=== PATIENT | male | born 1995 | race Caucasian/White ===

== ENCOUNTER 2018-06-05 10:36 | Emergency (ER) | payer BC ==
[2018-06-05 11:23] VITALS: BP 149/83
--- NOTE | 2018-06-05 12:28 | UC ---
Eye Complaint HPI - HPI Summary HPI Summary: PT AWOKE THIS AM WITH R EYE REDNESS AND CRUSTING. NOW IN L EYE WELL. + HEAD COLD FOR A COUPLE OF DAYS. NO CONTACT USE OF EYE PAIN. - History of Current Complaint Chief Complaint: UCEye Stated Complaint: RIGHT EYE CONCERN Time Seen by Provider: 06/05/18 12:22 Hx Obtained From: Patient Onset/Duration: Gradual Onset Timing: Constant Pain Intensity: 0 Aggravating Factor(s): Nothing Alleviating Factor(s): Nothing Associated Signs And Symptoms: Negative: Photophobia, Vision Impairment Bilateral - Risk Factors Acute Glaucoma Risk Factors: Negative - Allergies/Home Medications Allergies/Adverse Reactions: Allergies Allergy/AdvReac Type Severity Reaction Status Date / Time No Known Allergies Allergy Verified 06/05/18 11:19 PMH/Surg Hx/FS Hx/Imm Hx Previously Healthy: Yes - Surgical History Surgical History: None - Family History Known Family History: Positive: Non-Contributory - Social History Occupation: Student Alcohol Use: Weekly Substance Use Type: None Smoking Status (MU): Never Smoked Tobacco - Immunization History Vaccination Up to Date: Yes Review of Systems All Other Systems Reviewed And Are Negative: Yes Constitutional: Negative: Fever Eyes: Positive: Drainage, Eye Redness. Negative: Blurred Vision, Diplopia, Photophobia Neurological: Negative: Headache Physical Exam Triage Information Reviewed: Yes Appearance: Well-Appearing Vital Signs: Initial Vital Signs Temp 98.3 F 06/05/18 11:19 Pulse 69 06/05/18 11:19 Resp 15 06/05/18 11:19 BP 149/83 06/05/18 11:19 Pulse Ox 100 06/05/18 11:19 Vital Signs Reviewed: Yes Eyes: Positive: Other: - NO PERIORBIAL EDEMA OR RASH. NO AURICULAR ADENOPATHY. CONJUNCTIVE INJECTED X2 AND YELLOW DISCHARGE NOTED X2. PERRL, EOMI. AC'S CLEAR. ENT: Positive: Pharynx normal, Nasal congestion, Nasal drainage - CLEAR, TMs normal. Negative: Sinus tenderness Neck: Positive: Supple, Nontender Respiratory: Positive: Lungs clear Cardiovascular: Positive: RRR Abdomen Description: Positive: Nontender Bowel Sounds: Positive: Present Musculoskeletal: Positive: ROM Intact Neurological: Positive: Alert Psychological: Positive: Age Appropriate Behavior Skin Exam: Normal Skin: Negative: Rashes Eye Complaint Course/Dx - Differential Dx/Diagnosis Provider Diagnosis: URI (upper respiratory infection), Conjunctivitis Discharge - Sign-Out/Discharge Documenting (check all that apply): Patient Departure All imaging exams completed and their final reports reviewed: No Studies - Discharge Plan Condition: Stable Disposition: HOME Prescriptions: Polymyx/Trimethoprim OPTH* [Polytrim OPHTH*] 1 drop BOTH EYES Q3H 7 Days #1 btl Patient Education Materials: Upper Respiratory Infection (DC), Conjunctivitis ( ED) Forms: *School Release Referrals: RENALDO [facility] [[facility], APPLICATION, OTHER] - 4 Days Additional Instructions: HAVE THE CLINIC RECHECK YOUR BLOOD PRESSURE DURING THE FOLLOW UP VISIT. BP HERE 149/83 - Billing Disposition and Condition Condition: STABLE Disposition: Home - Attestation Statements Provider Attestation: I was available for consult. This patient was seen by the JULIETA. The patient was not presented to, seen by, or examined by me. -Zahida
== END 2018-06-05 12:37 | disposition home or self-care (01) ==
LOC: UCCORT 10:36
DX: H10.9 Unspecified conjunctivitis (principal); J06.9 Acute upper respiratory infection, unspecified
CPT/HCPCS: 99202; G0463

== ENCOUNTER 2019-05-05 13:40 | Emergency (ER) | payer BC ==
--- OUTSIDE RECORDS SUMMARY | 2019-05-05 14:00 | XMS REPORT | Summary of Care ---
:1995 Author Organization [facility] Address [address] [place] [address] Care Team Providers Name Role Phone Trinidad Bhatti MD Primary Care Provider Reason for Visit Reason Comments Follow-up Chest and Epigastric Pain after vomiting Encounter Details Date Type Department Care Team Description 03/07/2019 Office Visit [facility] Peyman Garcia MD Hematemesis with [address] [facility] nausea (Primary Dx) [address] [place] [id number] Allergies No Known Allergiesdocumented as of this encounter (statuses as of 03/13/2019) Medications Medication Sig Dispensed Refills Start Date End Date Status Pantoprazole Sodium Take 1 tablet by 30 tablet 1 02/20/2019 02/19/2020 Active 40 MG Oral Tablet mouth every Delayed Release morning before (PROTONIX) breakfast Additional information Patient not taking. Reported on 03/07/2019 8:46 AM documented as of this encounter (statuses as of 03/13/2019) Active Problems Problem Noted Date Hematemesis with nausea 03/07/2019 Esophageal rupture 02/18/2019 documented as of this encounter (statuses as of 03/13/2019) Social History Tobacco Use Types Packs/Day Years Used Date Never Smoker 0 Smokeless Tobacco: Never Used Alcohol Use Drinks/Week oz/Week Comments Yes 10 Cans of beer 10.0 Sex Assigned at Date Recorded Not on file Job Start Date Occupation Industry Not on file Not on file Not on file Travel History Travel Start Travel End No recent travel history available. documented as of this encounter Last Filed Vital Signs Vital Sign Reading Time Taken Comments Blood Pressure 124/83 03/07/2019 8:44 AM EST Pulse 78 03/07/2019 8:44 AM EST Temperature 36.6 03/07/2019 8:44 AM EST C (97.9 F) Respiratory Rate 16 03/07/2019 8:44 AM EST Oxygen Saturation 96% 03/07/2019 8:44 AM EST Inhaled Oxygen Concentration - - Weight 86.6 kg (191 lb) 03/07/2019 8:44 AM EST Height 185.4 cm (6' 1") 03/07/2019 8:44 AM EST Body Mass Index 25.2 03/07/2019 8:44 AM EST documented in this encounter Progress Notes Peyman Garcia MD - 03/07/2019 9:00 AM EST Thoracic Surgery Outpatient Progress Note Subjective Edu Clark is a 23 y.o. male with a recent hospitalization for possible esophageal rupture. He was transferred from [facility] following multiple episode of emesis and dry heaves, which progressed to hematemesis. His CT and esophagram were negative and he was able to be discharged home. He presents today for follow up. Overall, Mr. Clark reports being in good health. He has not had any issues related to abdominal pain, dysphagia, heartburn, nausea, or vomiting since hospital discharge. He does state that he had an episode of significant nausea and vomiting about 2-3 weeks before his hospitalization, which he attributed to motion sickness. History reviewed. No pertinent past medical history. Past Surgical History: Procedure Laterality Date WISDOM TOOTH EXTRACTION No Known Allergies Current Outpatient Medications: Pantoprazole Sodium 40 MG Oral Tablet Delayed Release (PROTONIX), Take 1 tablet by mouth every morning before breakfast (Patient not taking: Reported on 03/07/2019), Disp: 30 tablet, Rfl: 1 Family History Problem Relation Age of Onset No Known Problems Mother No Known Problems Father Asthma Sister Social History Socioeconomic History Marital status: Single Spouse name: Not on file Number of children: Not on file Years of education: Not on file Highest education level: Not on file Occupational History Occupation: student Social Needs Financial resource strain: Not on file Food insecurity: Worry: Not on file Inability: Not on file Transportation needs: Medical: Not on file Non-medical: Not on file Tobacco Use Smoking status: Never Smoker Smokeless tobacco: Never Used Substance and Sexual Activity Alcohol use: Yes Alcohol/week: 10.0 standard drinks Types: 10 Cans of beer per week Drug use: Never Sexual activity: Yes Partners: Female control/protection: Condom Lifestyle Physical activity: Days per week: Not on file Minutes per session: Not on file Stress: Not on file Relationships Social connections: Talks on phone: Not on file Gets together: Not on file Attends taoism service: Not on file Active member of club or organization: Not on file Attends meetings of clubs or organizations: Not on file Relationship status: Not on file Intimate partner violence: Fear of current or ex partner: Not on file Emotionally abused: Not on file Physically abused: Not on file Forced sexual activity: Not on file Other Topics Concern Not on file Social History Narrative Not on file ROS- negative except for HPI Objective Visit Vitals BP 124/83 (BP Location: Left arm, Patient Position: Sitting, Cuff size: Regular) Pulse 78 Temp 36.6 C (Oral) Resp 16 Ht 1.854 m Wt 86.6 kg (191 lb) SpO2 96% BMI 25.20 kg/m Gen: AAOx3 NAD HEENT: NCAT, PERRL, EOMI Neck: Supple, trachea midline Pulm: Clear and unlabored on room air Abd: Soft, NTND Extrem: WWP Assessment Edu Clark is a 23 y.o. male with recent hospitalization after multiple bout of emesis culminating in hematemesis. Plan - I had long and productive conversation with the patient regarding his clinical history and imaging.We discussed his overall health since discharge, and he reports doing very well. He has been limiting his diet to soft foods, and I explained that at this point, he can advance and eat whatever he would like without any restrictions or limitations. He is also free to resume normal activities withoutany limitations from that standpoint as well. While the episode that led to hospitalization was potentially related to alcohol consumption the night before, the patient reports having a similar episode where he had multiple bouts of vomiting without any dry heaving that happened 2 or 3 weeks before then. He states he thought this was related more due to his motion sickness, but was concerned if he should follow up with a clinical microbiologist. I explained to him that he should follow up with his primary care physician when he returns home on , and he will help make the determination of whether a gastroenterology evaluation would be appropriate. The patient asked a number of insightful questions which were answered to his satisfaction. I reiterated he has no limitations on his diet or activity at this point. We encouraged him to call with any questions or concerns that should arise. I would be happy to see him at any time should the need arise. I spent 10 minutes with the patient. More than 50% of the visit was spent on reviewing the above mentioned imaging with the patient and counseling the patient about the assessment and plan as outlined. documented in this encounter Plan of Treatment Health Maintenance Due Date Last Done Comments MMR Vaccines (1 of 1 - Standard 1998 series) Varicella Vaccines (1 of 2 - 1998 2-dose childhood series) DTaP,Tdap,and Td Vaccines (1 - 2004 Tdap) HPV Vaccines (1 - Male 2-dose 2008 series) HIV Screening 2010 Influenza Vaccine 12/26/2018 Pneumococcal Vaccine: 65+ Years (1 2062 of 2 - PCV13) HIB Vaccines Aged Out No longer eligible based on patient's age to complete this topic Hepatitis A Vaccines Aged Out No longer eligible based on patient's age to complete this topic Hepatitis B Vaccines Aged Out No longer eligible based on patient's age to complete this topic IPV Vaccines Aged Out No longer eligible based on patient's age to complete this topic Pneumococcal Vaccine: Pediatrics Aged Out No longer eligible based on (0 to 5 Years) and At-Risk patient's age to complete this Patients (6 to 64 Years) topic documented as of this encounter Results Not on filedocumented in this encounter Visit Diagnoses Diagnosis Hematemesis with nausea - Primary documented in this encounter
[2019-05-05 14:24] VITALS: BP 119/73
--- NOTE | 2019-05-05 14:56 | UC ---
General HPI - HPI Summary HPI Summary: 2 days ago started having a small but "ignorable" amount of left jaw pain which has progressively worsened. He awakened today with swelling in the left jaw area. - History of Current Complaint Chief Complaint: UCGeneralIllness Stated Complaint: LEFT JAW PAIN Time Seen by Provider: 05/05/19 14:55 Hx Obtained From: Patient Onset/Duration: Gradual Onset Timing: Constant Onset Severity: Mild Current Severity: Mild Pain Intensity: 2 - Allergy/Home Medications Allergies/Adverse Reactions: Allergies Allergy/AdvReac Type Severity Reaction Status Date / Time No Known Allergies Allergy Verified 05/05/19 14:24 PMH/Surg Hx/FS Hx/Imm Hx Previously Healthy: Yes - Surgical History Surgical History: None - Family History Known Family History: Positive: Non-Contributory - Social History Occupation: Student Lives: Dormitory/Roommates Alcohol Use: Weekly Substance Use Type: None Smoking Status (MU): Never Smoked Tobacco - Immunization History Vaccination Up to Date: Yes Review of Systems All Other Systems Reviewed And Are Negative: Yes ENT: Positive: Other - Left jaw pain and swelling Is Patient Immunocompromised?: No Physical Exam Triage Information Reviewed: Yes Appearance: Well-Appearing, No Pain Distress, Well-Nourished Vital Signs: Initial Vital Signs Temp 99.0 F 05/05/19 14:19 Pulse 82 05/05/19 14:19 Resp 16 05/05/19 14:19 BP 119/73 05/05/19 14:19 Pulse Ox 99 05/05/19 14:19 Vital Signs Reviewed: Yes Eyes: Positive: Conjunctiva Clear ENT: Positive: Hearing grossly normal, Pharynx normal, TMs normal, Uvula midline , Other - Tragus non tender. Swelling anteriorly to the left tragus with mild cellulitis below the swelling and tenderness on palpation.. Negative: Trismus, Muffled voice Dental Exam: Normal Dental: Positive: Other: - No evidence of abscess, teeth non-tender on firm palpation. Neck: Positive: Supple, Other: - Mild tenderness left tonsillar lymph node area with swelling and mild cellulitis Respiratory: Positive: Lungs clear, Normal breath sounds, No respiratory distress, No accessory muscle use Cardiovascular: Positive: RRR, No Murmur, Pulses Normal, Brisk Capillary Refill Musculoskeletal Exam: Normal Neurological Exam: Normal Psychological Exam: Normal Skin: Positive: Other - see above notes. Course/Dx - Course Course Of Treatment: Pt is comfortable here. Discussed with Dr. Ortiz who also examined the patient. - Diagnoses Provider Diagnosis: Cellulitis of left jaw Discharge ED - Sign-Out/Discharge Documenting (check all that apply): Patient Departure All imaging exams completed and their final reports reviewed: No Studies - Discharge Plan Condition: Good Disposition: HOME Prescriptions: Amoxicillin/Clavulanate TAB* [Augmentin TAB 875*] 875 mg PO BID 10 Days #20 tab Patient Education Materials: Cellulitis (DC) Referrals: Casper Rivera MD [Medical Doctor] - No Primary Care Phys,NOPCP [Primary Care Provider] - Lewis Bradley MD [Medical Doctor] - Additional Instructions: Warm, moist compresses to the area 4-6 times a day for 20 minutes each time, May alternate Tylenol every 4 hours and Motrin every 8 hours for pain. Follow up with the local ENT doctor if no improvement in 3-4 days or with your ENT doctor at home. Take the Augmentin with food. - Billing Disposition and Condition Condition: GOOD Disposition: Home
== END 2019-05-05 15:16 | disposition home or self-care (01) ==
LOC: UCCORT 13:40
DX: L03.211 Cellulitis of face (principal)
CPT/HCPCS: 99212; G0463